=== PATIENT | female | born 1995 | race American Indian/Alaskan Native ===

== ENCOUNTER 2017-03-22 15:42 | Emergency (ER) | payer OTHER ==
[2017-03-22 15:56] VITALS: BP 109/75
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
[2017-03-22] MEDS ORDERED: MOTRIN PO ONE (20:17)
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
== END 2017-03-22 20:50 | disposition home or self-care (01) ==
LOC: ED 15:42
DX: S00.03XA Contusion of scalp, initial encounter (principal); Y04.2XXA Assault by strike against or bumped into by another person, initial encounter; Y93.89 Activity, other specified; Y99.9 Unspecified external cause status; Y92.009 Unspecified place in unspecified non-institutional (private) residence as the place of occurrence of the external cause
CPT/HCPCS: 70450; 71020; 99284